=== PATIENT | male | born 1990 | race Native Hawaiian/Other Pacific Islander ===

== ENCOUNTER 2020-03-23 11:27 | Day surgery (SDC) | payer OTHER ==
[2020-03-22 10:30] LABS: PLATELET COUNT 182 K/uL (142-355)
[2020-03-22 10:38] LABS: POTASSIUM 3.8 mmol/L (3.6-5.2)
== END 2020-03-24 16:53 | disposition home or self-care (01) ==
LOC: OR 11:27
PROVIDERS: ATTEND Internal Medicine Gastroenterology
PROC: 0DB68ZZ Excision of Stomach, Via Natural or Artificial Opening Endoscopic (ICD-10-PCS; principal; 2020-03-23)
PROC: 0DB88ZZ Excision of Small Intestine, Via Natural or Artificial Opening Endoscopic (ICD-10-PCS; 2020-03-23)
DX: K29.00 Acute gastritis without bleeding (principal); K21.00 Gastro-esophageal reflux disease with esophagitis, without bleeding; R10.13 Epigastric pain
CPT/HCPCS: 80053; 85027; J2704